=== PATIENT | female | born 2000 | race Two or more races ===

== ENCOUNTER 2023-06-09 13:15 | Inpatient (IN) | payer BC, OTHER ==
[~2023-06-09] VITALS: Ht 170.2 cm; Wt 61.9 kg
[2023-06-09 14:48] VITALS: PULSE 61; RESP 26; O2SAT 93
[2023-06-09 15:00] LABS: Basophils # (auto) 0.1 10 ^3/uL (0-0.2); Basophils % (auto) 0.4 % (0.0-2.0); Eosinophils # (auto) 0 10 ^3/uL (0-0.8); Eosinophils % (auto) 0.1 % (0.0-7.0); Hematocrit 43.4 % (36.0-46.0); Hemoglobin 14.6 g/dL (12.2-16.2); Lymphocytes # (auto) 1.4 10 ^3/uL (0.4-5.4); Mean Corpuscular Hemoglobin 29.3 pg (28.0-32.0); Mean Corpuscular Hgb Conc. 33.7 g/dL (32.0-36.0); Mean Corpuscular Volume 87.1 fL (80.0-100.0); Monocytes # (auto) 0.6 10 ^3/uL (0-1.3); Monocytes % (auto) 4.6 % (0.0-12.0); Neutrophils # (auto) 10.4 10 ^3/uL (1.6-8.6); Neutrophils % (auto) 83.9 % (37.0-80.0); Nucleated Red Blood Cells % 0.1 %; Red Blood Cells 4.98 10^6/uL (4.0-5.20); Red Cell Distribution Width 13.6 % (11.8-14.3); White Blood Cell 12.4 10^3/uL (4.4-10.8)
[2023-06-09 15:07] LABS: Chloride 102 mmol/L (98-107); Potassium 3.9 mmol/L (3.5-5.1); Sodium 134 mmol/L (136-145)
[2023-06-09 15:08] LABS: Anion Gap 11 (5-15); Calcium 10.2 mg/dL (8.7-10.4); Carbon Dioxide 21 mmol/L (20-30)
[2023-06-09 15:13] LABS: BUN/Creatinine Ratio 11.7 (10.0-20.0); Blood Urea Nitrogen 9 mg/dL (9-23); Glucose 82 mg/dL (74-106)
[2023-06-09 15:30] LABS: Urine Bacteria NONE SEEN /hpf (None Seen); Urine Blood Negative /uL (Negative); Urine Clarity Clear (Clear); Urine Color Yellow (Yellow); Urine Hyaline Cast FEW /lpf (0 - 2); Urine Mucus FEW (None Seen); Urine Protein, UAD TRACE (Negative); Urine Specific Gravity 1.026 (1.001-1.035); Urine Urobilinogen Normal (Negative); Urine WBC 1 /hpf (0 - 5); Urine pH 5.5 (5.0-8.0)
[2023-06-09] MEDS ORDERED: SODIUM CHLORIDE 0.9% 1,000 ML IV ONE (18:00)
[2023-06-09 19:45] VITALS: PULSE 90; RESP 18; O2SAT 100
[2023-06-09] MEDS ORDERED: ONDANSETRON HCL 4 MG/2 ML VIAL IV ONE (20:00)
[2023-06-09 20:51] LABS: Albumin 4.9 g/dL (3.2-4.8); Alkaline Phosphatase 51 U/L (46-116); Anion Gap 12 (5-15); Aspartate Aminotransferase 9 U/L (13-40); BUN/Creatinine Ratio 13.4 (10.0-20.0); Bilirubin, Total 1.1 mg/dL (0.2-1.0); Blood Urea Nitrogen 9 mg/dL (9-23); Calcium 9.4 mg/dL (8.7-10.4); Carbon Dioxide 19 mmol/L (20-30); Chloride 104 mmol/L (98-107); Glucose 74 mg/dL (74-106); Lipase 35 U/L (12-53); Potassium 3.9 mmol/L (3.5-5.1); Sodium 135 mmol/L (136-145); Total Protein 7.9 g/dL (5.7-8.2)
[2023-06-09 20:55] LABS: Alanine Aminotransferase < 9 U/L (7-40)
[2023-06-09] MEDS ORDERED: DOCUSATE SOD 100 MG CAP PO PRN (21:00)
[2023-06-09] MEDS ORDERED: DEXTROSE (50%) 50ML SYRG IV PRN (21:00)
[2023-06-09 21:06] LABS: Bilirubin, Direct 0.4 mg/dL (<0.3)
[2023-06-09] MEDS: cefTRIAXone 1GM/50ML D5W 50 ML IV SCH ×2 (21:59→22:00)
[2023-06-09] MEDS: metroNIDAZOLE 500MG/100ML 100 ML IV SCH (22:00)
[2023-06-09 22:16] LABS: Erythrocyte Sedimentation Rate 8 mm/hr (0-20)
[2023-06-09] MEDS: SODIUM CHLOR 0.9% PF (SALINE LOCK) 10ML VIAL/SYR IV SCH (22:18)
[2023-06-10] MEDS ORDERED: D5W/LACTATED RINGERS 1,000 ML IV ONE (00:45)
[2023-06-10] MEDS: ONDANSETRON HCL 4 MG/2 ML VIAL IV PRN ×5 (00:56→20:19)
[2023-06-10] MEDS ORDERED: CEPH500C PO (02:53)
[2023-06-10] MEDS ORDERED: DOXY1TAB PO (02:53)
[2023-06-10 05:00] VITALS: BP 116/67; PULSE 81; RESP 17; TEMP 98.2; O2SAT 98
[2023-06-10] MEDS: metroNIDAZOLE 500MG/100ML 100 ML IV SCH ×3 (05:40→22:00)
[2023-06-10] MEDS: ACCU-CHEK COMFORT CURVE STRIP VI SCH ×5 (06:00→23:45)
[2023-06-10] MEDS: InsuLIN REG 1unit/0.01ml Soln (100units/ml) SC SCH ×5 (06:00→23:46)
[2023-06-10] MEDS: SODIUM CHLOR 0.9% PF (SALINE LOCK) 10ML VIAL/SYR IV SCH ×3 (06:03→21:15)
[2023-06-10 09:00] VITALS: BP 106/50; PULSE 56; RESP 96; TEMP 98.1; O2SAT 96
[2023-06-10] MEDS: ACETAMINOPHEN 325 MG TAB PO PRN (12:30)
[2023-06-10 13:00] VITALS: BP 106/70; PULSE 74; RESP 20; TEMP 98.1; O2SAT 98
[2023-06-10 17:00] VITALS: BP 118/64; PULSE 64; RESP 20; TEMP 98; O2SAT 100
[2023-06-10 20:00] VITALS: RESP 16
[2023-06-10] MEDS: cefTRIAXone 1GM/50ML D5W 50 ML IV SCH (21:14)
[2023-06-10 22:00] VITALS: BP 122/56; PULSE 62; RESP 18; TEMP 98.3; O2SAT 100
[2023-06-11] MEDS: ONDANSETRON HCL 4 MG/2 ML VIAL IV PRN ×6 (01:18→22:33)
[2023-06-11 05:00] VITALS: BP 112/53; PULSE 59; RESP 16; TEMP 98.2; O2SAT 99
[2023-06-11] MEDS: ACCU-CHEK COMFORT CURVE STRIP VI SCH ×4 (05:41→23:57)
[2023-06-11] MEDS: SODIUM CHLOR 0.9% PF (SALINE LOCK) 10ML VIAL/SYR IV SCH ×3 (05:41→21:30)
[2023-06-11] MEDS: metroNIDAZOLE 500MG/100ML 100 ML IV SCH ×3 (05:41→22:33)
[2023-06-11] MEDS: InsuLIN REG 1unit/0.01ml Soln (100units/ml) SC SCH ×4 (05:49→23:57)
[2023-06-11 09:00] VITALS: BP 134/63; PULSE 85; RESP 21; TEMP 98; O2SAT 100
[2023-06-11 13:00] VITALS: BP 111/69; PULSE 73; RESP 20; TEMP 98; O2SAT 98
[2023-06-11 17:06] VITALS: BP 144/65; PULSE 86; RESP 21; TEMP 97.9; O2SAT 95
[2023-06-11] MEDS: ACETAMINOPHEN 325 MG TAB PO PRN (18:46)
[2023-06-11 20:00] VITALS: PULSE 80; RESP 18
[2023-06-11] MEDS: cefTRIAXone 1GM/50ML D5W 50 ML IV SCH (21:26)
[2023-06-11 22:00] VITALS: BP 121/94; PULSE 80; RESP 16; TEMP 98.1; O2SAT 100
[2023-06-12] VITALS (7 sets, daily range): BP systolic 103–125; BP diastolic 60–80; PULSE 80–99; RESP 15–18; TEMP 98–98.5; O2SAT 98–100
[2023-06-12] MEDS: ONDANSETRON HCL 4 MG/2 ML VIAL IV PRN ×5 (02:41→20:34)
[2023-06-12] MEDS ORDERED: ACETAMINOPHEN 650 mg PER 20.3 mL UD GT PRN (02:45)
[2023-06-12 05:56] LABS: Basophils # (auto) 0 10 ^3/uL (0-0.2); Basophils % (auto) 0.2 % (0.0-2.0); Eosinophils # (auto) 0 10 ^3/uL (0-0.8); Hematocrit 37.5 % (36.0-46.0); Hemoglobin 13.2 g/dL (12.2-16.2); Lymphocytes # (auto) 0.6 10 ^3/uL (0.4-5.4); Lymphocytes % (auto) 5.6 % (10.0-50.0); Mean Corpuscular Hemoglobin 30.1 pg (28.0-32.0); Mean Corpuscular Hgb Conc. 35.2 g/dL (32.0-36.0); Mean Corpuscular Volume 85.4 fL (80.0-100.0); Monocytes # (auto) 0.8 10 ^3/uL (0-1.3); Neutrophils # (auto) 8.7 10 ^3/uL (1.6-8.6); Neutrophils % (auto) 86.2 % (37.0-80.0); Red Blood Cells 4.39 10^6/uL (4.0-5.20); White Blood Cell 10.1 10^3/uL (4.4-10.8)
[2023-06-12 05:57] LABS: Chloride 105 mmol/L (98-107); Potassium 4.2 mmol/L (3.5-5.1); Sodium 136 mmol/L (136-145)
[2023-06-12 05:58] LABS: Anion Gap 11 (5-15); Calcium 9.6 mg/dL (8.5-10.1); Carbon Dioxide 20 mmol/L (20-30)
[2023-06-12] MEDS: InsuLIN REG 1unit/0.01ml Soln (100units/ml) SC SCH ×4 (06:00→23:54)
[2023-06-12 06:03] LABS: BUN/Creatinine Ratio 11.8 (10.0-20.0); Blood Urea Nitrogen 9 mg/dL (9-23); Glucose 87 mg/dL (74-106)
[2023-06-12] MEDS: metroNIDAZOLE 500MG/100ML 100 ML IV SCH ×3 (06:03→22:41)
[2023-06-12] MEDS: ACCU-CHEK COMFORT CURVE STRIP VI SCH ×4 (06:07→23:56)
[2023-06-12] MEDS: SODIUM CHLOR 0.9% PF (SALINE LOCK) 10ML VIAL/SYR IV SCH ×3 (06:08→21:53)
[2023-06-12] MEDS ORDERED: SODIUM CHLORIDE 0.9% 1,000 ML IV SCH (10:00)
[2023-06-12] MEDS ORDERED: ACETAMINOPHEN IV 1000 MG/100ML (10MG/ML) IV PRN (12:00)
[2023-06-12] MEDS: ACETAMINOPHEN IV 1000 MG/100ML (10MG/ML) IV PRN ×2 (12:40→20:34)
[2023-06-12] MEDS: cefTRIAXone 1GM/50ML D5W 50 ML IV SCH (21:13)
[2023-06-12] MEDS: D5W/SOD CHLO 0.9% 1,000 ML IV SCH (23:54)
[2023-06-13] MEDS: ONDANSETRON HCL 4 MG/2 ML VIAL IV PRN ×4 (00:30→23:23)
[2023-06-13 05:00] VITALS: BP 112/69; PULSE 70; RESP 18; TEMP 98.3; O2SAT 94
[2023-06-13] MEDS: ACETAMINOPHEN IV 1000 MG/100ML (10MG/ML) IV PRN ×2 (05:14→13:34)
[2023-06-13] MEDS: metroNIDAZOLE 500MG/100ML 100 ML IV SCH ×3 (05:59→21:50)
[2023-06-13] MEDS: InsuLIN REG 1unit/0.01ml Soln (100units/ml) SC SCH ×3 (06:00→18:00)
[2023-06-13] MEDS: ACCU-CHEK COMFORT CURVE STRIP VI SCH ×3 (06:02→18:00)
[2023-06-13] MEDS: SODIUM CHLOR 0.9% PF (SALINE LOCK) 10ML VIAL/SYR IV SCH ×3 (06:02→21:58)
[2023-06-13 06:16] LABS: Basophils # (auto) 0 10 ^3/uL (0-0.2); Basophils % (auto) 0.5 % (0.0-2.0); Eosinophils # (auto) 0 10 ^3/uL (0-0.8); Eosinophils % (auto) 0.1 % (0.0-7.0); Hematocrit 34.4 % (36.0-46.0); Hemoglobin 11.9 g/dL (12.2-16.2); Lymphocytes % (auto) 12.9 % (10.0-50.0); Mean Corpuscular Hemoglobin 29.6 pg (28.0-32.0); Mean Corpuscular Hgb Conc. 34.7 g/dL (32.0-36.0); Mean Corpuscular Volume 85.4 fL (80.0-100.0); Monocytes # (auto) 1.2 10 ^3/uL (0-1.3); Monocytes % (auto) 15.9 % (0.0-12.0); Neutrophils # (auto) 5.3 10 ^3/uL (1.6-8.6); Neutrophils % (auto) 70.6 % (37.0-80.0); Red Blood Cells 4.03 10^6/uL (4.0-5.20); Red Cell Distribution Width 13.3 % (11.8-14.3); White Blood Cell 7.5 10^3/uL (4.4-10.8)
[2023-06-13 06:20] LABS: Chloride 106 mmol/L (98-107); Potassium 4.4 mmol/L (3.5-5.1); Sodium 135 mmol/L (136-145)
[2023-06-13 06:21] LABS: Anion Gap 8 (5-15); Carbon Dioxide 21 mmol/L (20-30)
[2023-06-13 06:26] LABS: Glucose 95 mg/dL (74-106)
[2023-06-13 06:27] LABS: BUN/Creatinine Ratio 11.3 (10.0-20.0); Blood Urea Nitrogen 7 mg/dL (9-23)
[2023-06-13 08:30] VITALS: PULSE 70; RESP 18
[2023-06-13 08:33] VITALS: BP 103/57; PULSE 89; RESP 17; TEMP 97.8; O2SAT 98
[2023-06-13] MEDS: D5W/SOD CHLO 0.9% 1,000 ML IV SCH ×2 (09:20→21:58)
[2023-06-13] MEDS ORDERED: FAMOTIDINE (10MG/ML) 2ML VL IV ONE (10:15)
[2023-06-13 18:03] VITALS: BP 114/78; PULSE 71; RESP 16; TEMP 97.7; O2SAT 100
[2023-06-13 20:00] VITALS: RESP 18
[2023-06-13] MEDS: FAMOTIDINE (10MG/ML) 2ML VL IV SCH (21:50)
[2023-06-13 22:00] VITALS: BP 115/76; PULSE 85; RESP 16; TEMP 98.3; O2SAT 99
[2023-06-13] MEDS: cefTRIAXone 1GM/50ML D5W 50 ML IV SCH (23:24)
[2023-06-14] MEDS: ACCU-CHEK COMFORT CURVE STRIP VI SCH ×3 (00:29→12:56)
[2023-06-14 05:00] VITALS: BP 105/69; PULSE 72; RESP 16; TEMP 98.1; O2SAT 98
[2023-06-14 05:49] LABS: Basophils # (auto) 0 10 ^3/uL (0-0.2); Basophils % (auto) 0.3 % (0.0-2.0); Eosinophils # (auto) 0 10 ^3/uL (0-0.8); Eosinophils % (auto) 0.2 % (0.0-7.0); Hemoglobin 11.7 g/dL (12.2-16.2); Lymphocytes # (auto) 1.1 10 ^3/uL (0.4-5.4); Lymphocytes % (auto) 16.5 % (10.0-50.0); Mean Corpuscular Hemoglobin 29.9 pg (28.0-32.0); Mean Corpuscular Hgb Conc. 34.4 g/dL (32.0-36.0); Mean Corpuscular Volume 87.1 fL (80.0-100.0); Monocytes # (auto) 1.1 10 ^3/uL (0-1.3); Monocytes % (auto) 17.8 % (0.0-12.0); Neutrophils # (auto) 4.2 10 ^3/uL (1.6-8.6); Neutrophils % (auto) 65.2 % (37.0-80.0); Nucleated Red Blood Cells % 0.1 %; Red Cell Distribution Width 13.4 % (11.8-14.3); White Blood Cell 6.4 10^3/uL (4.4-10.8)
[2023-06-14 05:59] LABS: Calcium 8.7 mg/dL (8.7-10.4); Chloride 106 mmol/L (98-107); Potassium 3.3 mmol/L (3.5-5.1); Sodium 135 mmol/L (136-145)
[2023-06-14 06:00] LABS: Anion Gap 10 (5-15); Carbon Dioxide 19 mmol/L (20-30)
[2023-06-14] MEDS: InsuLIN REG 1unit/0.01ml Soln (100units/ml) SC SCH ×3 (06:00→12:00)
[2023-06-14 06:05] LABS: Glucose 90 mg/dL (74-106)
[2023-06-14] MEDS: SODIUM CHLOR 0.9% PF (SALINE LOCK) 10ML VIAL/SYR IV SCH ×2 (06:12→13:37)
[2023-06-14] MEDS: metroNIDAZOLE 500MG/100ML 100 ML IV SCH ×2 (06:16→13:37)
[2023-06-14 06:33] LABS: BUN/Creatinine Ratio 8.6 (10.0-20.0); Blood Urea Nitrogen < 5 mg/dL (9-23)
[2023-06-14] MEDS: FAMOTIDINE (10MG/ML) 2ML VL IV SCH (08:51)
[2023-06-14 09:00] VITALS: BP 108/71; PULSE 78; RESP 16; TEMP 97.9; O2SAT 99
[2023-06-14] MEDS ORDERED: POTASSIUM EFFERVESENT TAB 25 MEQ GT ONE (11:30)
[2023-06-14 12:58] VITALS: BP 103/64; PULSE 92; RESP 16; TEMP 98; O2SAT 99
[2023-06-14] MEDS: D5W/SOD CHLO 0.9% 1,000 ML IV SCH (12:58)
[2023-06-14] MEDS ORDERED: POTASSIUM EFFERVESENT TAB 25 MEQ PO ONE (13:00)
[2023-06-14] MEDS ORDERED: METR-344 PO (15:48)
[2023-06-14 17:00] VITALS: BP 114/68; PULSE 80; RESP 16; TEMP 98.2; O2SAT 97
== END 2023-06-14 17:49 | disposition home or self-care (01) | DRG 832 ==
LOC: ER 13:15 → OVERFLOW 20:58 → CENTRAL 06-10 02:12
PROVIDERS: ADMIT Internal Medicine Pulmonary Disease; ATTEND Internal Medicine Pulmonary Disease
DX: O21.0 Mild hyperemesis gravidarum (principal); O26.831 Pregnancy related renal disease, first trimester; O99.111 Other diseases of the blood and blood-forming organs and certain disorders involving the immune mechanism complicating pregnancy, first trimester; E87.6 Hypokalemia; K37 Unspecified appendicitis; Z3A.01 Less than 8 weeks gestation of pregnancy; O99.611 Diseases of the digestive system complicating pregnancy, first trimester; Z87.891 Personal history of nicotine dependence
CPT/HCPCS: 36415; 72195; 74181; 76705; 76801; 76817; 80048; 80053; 81001; 81025; 82248; 82962; 83690; 84702; 85025; 85652; 86141; 86900; 86901; 87040; G0378; J0131; J1815; J2405; J3490; J7042

== ENCOUNTER 2023-12-11 12:55 | Observation (INO) | payer MEDICAID ==
[~2023-12-11 12:55] MED LIST: CEPH500C PO; DOXY1TAB PO; METR-344 PO
[2023-12-11] MEDS ORDERED: PREN-96 PO (14:27)
== END 2023-12-11 15:07 | disposition home or self-care (01) ==
LOC: LDRP 12:55
PROVIDERS: ADMIT Obstetrics & Gynecology; ATTEND Obstetrics & Gynecology
DX: O24.419 Gestational diabetes mellitus in pregnancy, unspecified control (principal); Z3A.32 32 weeks gestation of pregnancy
CPT/HCPCS: 59025; 76818; 81002; 82962; 94760; G0378

== ENCOUNTER 2023-12-18 12:50 | Observation (INO) | payer MEDICAID ==
[~2023-12-18 12:50] MED LIST changes: -CEPH500C PO; -DOXY1TAB PO; -METR-344 PO; +PREN-96 PO
== END 2023-12-18 16:01 | disposition home or self-care (01) ==
LOC: UNDOADMOB 12:50 → LDRP 12:50 → UNDODISOB 16:01
PROVIDERS: ADMIT Obstetrics & Gynecology; ATTEND Obstetrics & Gynecology
DX: O24.419 Gestational diabetes mellitus in pregnancy, unspecified control (principal); O26.833 Pregnancy related renal disease, third trimester; N20.0 Calculus of kidney; Z3A.33 33 weeks gestation of pregnancy
CPT/HCPCS: 59025; 76818; 81002; 82948; 82962; G0378

== ENCOUNTER 2023-12-21 10:38 | Observation (INO) | payer MEDICAID ==
[2023-12-21] MEDS ORDERED: METF-370 PO (12:03)
== END 2023-12-21 12:13 | disposition home or self-care (01) ==
LOC: UNDOADMOB 10:38 → LDRP 10:38 → UNDODISOB 12:13
PROVIDERS: ADMIT Obstetrics & Gynecology; ATTEND Obstetrics & Gynecology
DX: O24.415 Gestational diabetes mellitus in pregnancy, controlled by oral hypoglycemic drugs (principal); Z3A.33 33 weeks gestation of pregnancy; Z79.84 Long term (current) use of oral hypoglycemic drugs
CPT/HCPCS: 59025; 76818; 81002; 82948; 82962; G0378

== ENCOUNTER 2023-12-28 07:40 | Observation (INO) | payer MEDICAID ==
[~2023-12-28 07:40] MED LIST changes: +METF-370 PO
== END 2023-12-28 09:05 | disposition home or self-care (01) ==
LOC: UNDOADMOB 07:40 → LDRP 07:40 → UNDODISOB 09:05
PROVIDERS: ADMIT Obstetrics & Gynecology; ATTEND Obstetrics & Gynecology
DX: O24.419 Gestational diabetes mellitus in pregnancy, unspecified control (principal); Z3A.34 34 weeks gestation of pregnancy
CPT/HCPCS: 59025; 76818; 81002; 82948; 82962; 94760; G0378

== ENCOUNTER 2024-01-01 12:10 | Observation (INO) | payer MEDICAID | END 2024-01-01 14:05 | disposition home or self-care (01) | LOC: UNDOADMOB 12:10 → LDRP 12:10 | PROVIDERS: ADMIT Obstetrics & Gynecology; ATTEND Obstetrics & Gynecology | DX: O24.419 Gestational diabetes mellitus in pregnancy, unspecified control (principal); Z3A.35 35 weeks gestation of pregnancy | CPT/HCPCS: 59025; 76818; 81002; 82948; 82962; 94760; G0378 ==

== ENCOUNTER → 2024-01-01 | Outpatient (CLI) | payer MEDICAID ==
[2024-01-01 14:23] LABS: Lymphocytes # (auto) 1.3 10 ^3/uL (0.4-5.4); Lymphocytes % (auto) 12.5 % (10.0-50.0); Neutrophils % (auto) 75.2 % (37.0-80.0); Nucleated Red Blood Cells % 0.1 %
[2024-01-01 14:24] LABS: Basophils # (auto) 0.1 10 ^3/uL (0-0.2); Basophils % (auto) 0.7 % (0.0-2.0); Eosinophils # (auto) 0.1 10 ^3/uL (0-0.8); Eosinophils % (auto) 0.6 % (0.0-7.0); Hematocrit 30.7 % (36.0-46.0); Hemoglobin 10.4 g/dL (12.2-16.2); Mean Corpuscular Hemoglobin 26.3 pg (28.0-32.0); Mean Corpuscular Volume 77.4 fL (80.0-100.0); Monocytes # (auto) 1.1 10 ^3/uL (0-1.3); Neutrophils # (auto) 7.8 10 ^3/uL (1.6-8.6); Red Blood Cells 3.97 10^6/uL (4.0-5.20); Red Cell Distribution Width 15.5 % (11.8-14.3); White Blood Cell 10.4 10^3/uL (4.4-10.8)
[2024-01-02 07:07] LABS: RPR Non Reactive (Non Reactive)
[2024-01-02 20:06] LABS: Chlamydia Trachomatis, NAA Negative (Negative); Neisseria gonorrhoeae, NAA Negative (Negative)
== END | disposition home or self-care (01) ==
LOC: LAB 14:08
PROVIDERS: ATTEND Obstetrics & Gynecology
DX: Z11.3 Encounter for screening for infections with a predominantly sexual mode of transmission (principal); Z34.00 Encounter for supervision of normal first pregnancy, unspecified trimester; Z72.51 High risk heterosexual behavior
CPT/HCPCS: 36415; 83036; 85025; 86592

== ENCOUNTER 2024-01-04 08:48 | Observation (INO) | payer MEDICAID | END 2024-01-04 10:27 | disposition home or self-care (01) | LOC: UNDOADMOB 08:48 → LDRP 08:48 → UNDODISOB 10:27 | PROVIDERS: ADMIT Obstetrics & Gynecology; ATTEND Obstetrics & Gynecology | DX: O24.419 Gestational diabetes mellitus in pregnancy, unspecified control (principal); Z3A.35 35 weeks gestation of pregnancy | CPT/HCPCS: 59025; 76818; 81002; 82948; 82962; 94760; G0378 ==

== ENCOUNTER 2024-01-08 10:55 | Observation (INO) | payer MEDICAID | END 2024-01-08 13:30 | disposition home or self-care (01) | LOC: LDRP 10:55 → UNDOADMOB 10:55 → LDRP 11:58 → UNDODISOB 13:30 | PROVIDERS: ADMIT Obstetrics & Gynecology; ATTEND Obstetrics & Gynecology | DX: O24.419 Gestational diabetes mellitus in pregnancy, unspecified control (principal); Z3A.36 36 weeks gestation of pregnancy; Z79.84 Long term (current) use of oral hypoglycemic drugs | CPT/HCPCS: 59025; 76818; 81002; 82948; 82962; 94760; G0378 ==

== ENCOUNTER 2024-01-11 07:47 | Observation (INO) | payer MEDICAID | END 2024-01-11 09:11 | disposition home or self-care (01) | LOC: LDRP 07:47 | PROVIDERS: ADMIT Obstetrics & Gynecology; ATTEND Obstetrics & Gynecology | DX: O24.419 Gestational diabetes mellitus in pregnancy, unspecified control (principal); Z3A.36 36 weeks gestation of pregnancy | CPT/HCPCS: 59025; 76818; 81002; 82948; 82962; G0378 ==

== ENCOUNTER 2024-01-15 09:00 | Observation (INO) | payer MEDICAID | END 2024-01-15 10:25 | disposition home or self-care (01) | LOC: LDRP 09:00 | PROVIDERS: ADMIT Obstetrics & Gynecology; ATTEND Obstetrics & Gynecology | DX: O24.419 Gestational diabetes mellitus in pregnancy, unspecified control (principal); Z3A.37 37 weeks gestation of pregnancy | CPT/HCPCS: 59025; 76818; 81002; 82948; 82962; 94760; G0378 ==

== ENCOUNTER 2024-01-18 08:45 | Observation (INO) | payer MEDICAID | END 2024-01-18 10:51 | disposition home or self-care (01) | LOC: UNDOADMOB 08:45 → LDRP 08:45 → UNDODISOB 10:51 | PROVIDERS: ADMIT Obstetrics & Gynecology; ATTEND Obstetrics & Gynecology | DX: O24.419 Gestational diabetes mellitus in pregnancy, unspecified control (principal); Z3A.37 37 weeks gestation of pregnancy | CPT/HCPCS: 59025; 76818; 81002; 82948; 82962; 94760; G0378 ==

== ENCOUNTER 2024-01-22 13:37 | Observation (INO) | payer MEDICAID | END 2024-01-22 15:24 | disposition home or self-care (01) | LOC: LDRP 13:37 | PROVIDERS: ADMIT Obstetrics & Gynecology; ATTEND Obstetrics & Gynecology | DX: O24.419 Gestational diabetes mellitus in pregnancy, unspecified control (principal); Z3A.38 38 weeks gestation of pregnancy | CPT/HCPCS: 59025; 76818; 81002; 82948; 82962; 94760; G0378 ==

== ENCOUNTER 2024-01-25 11:01 | Observation (INO) | payer MEDICAID | END 2024-01-25 12:36 | disposition home or self-care (01) | LOC: LDRP 11:01 | PROVIDERS: ADMIT Obstetrics & Gynecology; ATTEND Obstetrics & Gynecology | DX: O24.419 Gestational diabetes mellitus in pregnancy, unspecified control (principal); O62.9 Abnormality of forces of labor, unspecified; Z3A.38 38 weeks gestation of pregnancy | CPT/HCPCS: 59025; 76818; 81002; 82948; 82962; 94760; G0378 ==

== ENCOUNTER 2024-01-29 06:52 | Inpatient (IN) | payer MEDICAID ==
[~2024-01-29] VITALS: Ht 167.6 cm; Wt 98.4 kg
[2024-01-29] MEDS ORDERED: LIDOCAINE 2%HCL (LOCAL ANESTH.) INJ 20ML MDV IJ PRN (07:00)
[2024-01-29 07:46] LABS: Urine Bacteria None Seen /hpf (None Seen)
[2024-01-29 07:50] LABS: Hemoglobin 10.2 g/dL (12.2-16.2); Red Cell Distribution Width 16.8 % (11.8-14.3)
[2024-01-29 07:54] LABS: Hematocrit 31.7 % (36.0-46.0); Mean Corpuscular Hemoglobin 24.3 pg (28.0-32.0); Mean Corpuscular Hgb Conc. 32.3 g/dL (32.0-36.0); Mean Corpuscular Volume 75.3 fL (80.0-100.0); Platelet Count (auto) 240 10^3/uL (140-450); Red Blood Cells 4.21 10^6/uL (4.0-5.20)
[2024-01-29 07:58] LABS: Basophils % (manual) 0 (0.0-2.0); Blast Cells 0; Myelocytes % 0; Promyelocytes % 0; Reactive Lymphocytes 0
[2024-01-29 08:00] LABS: Alanine Aminotransferase 16 U/L (7-40); Albumin 3.9 g/dL (3.2-4.8); Alkaline Phosphatase 178 U/L (46-116); Anion Gap 8 (5-15); Aspartate Aminotransferase 22 U/L (13-40); BUN/Creatinine Ratio 15.4 (10.0-20.0); Blood Urea Nitrogen 10 mg/dL (9-23); Calcium 9.9 mg/dL (8.7-10.4); Carbon Dioxide 20 mmol/L (20-30); Chloride 106 mmol/L (98-107); Glucose 106 mg/dL (74-106); Potassium 4.1 mmol/L (3.5-5.1); Sodium 134 mmol/L (136-145)
[2024-01-29 08:01] LABS: Bilirubin, Total < 0.2 mg/dL (0.2-1.0); Total Protein 6.6 g/dL (5.7-8.2)
[2024-01-29] MEDS: LACTATED RINGER'S 1,000 ML IV SCH (08:02)
[2024-01-29 08:07] LABS: Urine Blood Negative /uL (Negative); Urine Clarity Clear (Clear); Urine Color Light-Yellow (Yellow); Urine Protein, UAD Negative (Negative); Urine Specific Gravity 1.012 (1.001-1.035); Urine Urobilinogen Normal (Negative); Urine WBC 1 /hpf (0 - 5); Urine pH 6.5 (5.0-9.0)
[2024-01-29 08:11] LABS: Amphetamine Screen, Urine Neg (NEGATIVE)
[2024-01-29 08:12] LABS: Barbiturate Scree,Urine Neg (NEGATIVE); Benzodiazephine Screen, Urine Neg (NEGATIVE); Cannabinoid Screen, Urine Neg (NEGATIVE); Cocaine Screen, Urine Neg (NEGATIVE); Opiate Scree,Urine Neg (NEGATIVE); Phencyclidine Screen, Urine Neg (NEGATIVE)
[2024-01-29 08:35] LABS: INR 0.92 (0.9-1.15); Partial Thromboplastin Time 23.1 SEC (24.5-34.5); Prothrombin Time 9.8 sec (9.3-11.8)
[2024-01-29] MEDS: miSOPROStol 50 MCG per PRE-CUT 1/2 TAB PO PRN (08:47)
[2024-01-29] MEDS: WITCH HAZEL-GLYCERIN PAD TOP PRN (08:47)
[2024-01-29] MEDS: DERMOPLAST 60ML BOTTLE TOP PRN (08:47)
[2024-01-29] MEDS: PHISODERM TOP SOLN 240ML BTL TOP PRN (08:47)
[2024-01-29] MEDS ORDERED: ACCU-CHEK COMFORT CURVE STRIP VI SCH (10:00)
[2024-01-29 11:23] LABS: Band Neutrophils % (manual) 4; Eosinophils % (manual) 2 (0-7); Hypochromia Slight; Lymphocytes % (manual) 12 (10.0-50.0); Metamyelocytes % 2; Monocytes % (manual) 6 (0-12); Platelet Estimate Adequate
[2024-01-29] MEDS: ePHEDrine SULFATE 50 MG/ML AMP IV ONE (13:30)
[2024-01-29] MEDS: LIDOCAINE HCL 2 %PF INJ 10ML AMP IJ ONE (13:30)
[2024-01-29] MEDS: NALOXONE HCL 0.4 MG/ML VIAL IV ONE (13:30)
[2024-01-29] MEDS: LACTATED RINGER'S 1,000 ML IV ONE (13:36)
[2024-01-29] MEDS: FAMOTIDINE (10MG/ML) 2ML VL IV ONE (14:15)
[2024-01-29] MEDS: fentaNYL CITRATE 100 MCG/2 ML VL IV ONE (14:34)
[2024-01-29] MEDS: ROPIVACAINE HCL 200 ML ONE (14:35)
[2024-01-29 19:34] LABS: Vaginal Bacteria Few; Vaginal Clue Cells None Seen; Vaginal Epithelial Cells Few; Vaginal Trichomonas Not Present
[2024-01-30] MEDS: diphenhdrAMINE HCL 50 MG/1 ML VL IV PRN (03:06)
[2024-01-30] MEDS: ROPIVACAINE HCL 200 ML ONE (05:45)
[2024-01-30 07:06] LABS: RPR Non Reactive (Non Reactive)
[2024-01-30] MEDS ORDERED: D5W/LACTATED RINGERS 1,000 ML IV SCH (09:15)
[2024-01-30] MEDS ORDERED: TERBUTALINE SULFATE 1 MG/ML 1ML VIAL SC ONE (09:55)
[2024-01-30] MEDS: IBUPROFEN 600 MG TAB PO PRN (17:23)
[2024-01-30] MEDS: ACETAMINOPHEN 325 MG TAB PO PRN (17:23)
[2024-01-30] MEDS: LACT. RINGERS/OXYTOCIN 20UNITS 500 ML IV ONE ×2 (17:59)
[2024-01-30 19:00] VITALS: BP 141/73; PULSE 88; RESP 18; TEMP 97.9; O2SAT 96
[2024-01-30] MEDS: DOCUSATE SOD 100 MG CAP PO SCH (21:53)
[2024-01-30 23:00] VITALS: BP 134/75; PULSE 96; RESP 18; TEMP 98.2; O2SAT 96
[2024-01-31 02:48] VITALS: BP 134/68; PULSE 88; RESP 18; TEMP 97.8; O2SAT 98
[2024-01-31] MEDS ORDERED: IBU600T PO (05:21)
[2024-01-31 07:00] VITALS: BP 142/77; PULSE 75; RESP 18; TEMP 98.4; O2SAT 96
[2024-01-31 11:00] VITALS: BP 130/70; PULSE 83; RESP 18; TEMP 97.9; O2SAT 95
[2024-01-31 15:00] VITALS: BP 141/75; PULSE 85; RESP 18; TEMP 97.9; O2SAT 96
[2024-01-31 19:02] VITALS: BP 134/76; PULSE 86; RESP 16; TEMP 97.8; O2SAT 98
[2024-01-31 23:23] VITALS: BP 139/79; PULSE 78; RESP 17; TEMP 97.9; O2SAT 98
[2024-02-01] VITALS (18 sets, daily range): BP systolic 133–157; BP diastolic 70–97; PULSE 76–94; RESP 16–18; TEMP 97.9–98.7; O2SAT 96–99
[2024-02-01 09:39] LABS: Basophils # (auto) 0 10 ^3/uL (0-0.2); Basophils % (auto) 0.4 % (0.0-2.0); Lymphocytes # (auto) 1.5 10 ^3/uL (0.4-5.4); Mean Corpuscular Hemoglobin 24.9 pg (28.0-32.0); Monocytes # (auto) 1.1 10 ^3/uL (0-1.3); Neutrophils # (auto) 8.2 10 ^3/uL (1.6-8.6); White Blood Cell 11.2 10^3/uL (4.4-10.8)
[2024-02-01 09:41] LABS: Eosinophils # (auto) 0.3 10 ^3/uL (0-0.8); Eosinophils % (auto) 2.3 % (0.0-7.0); Hematocrit 28.8 % (36.0-46.0); Hemoglobin 9.6 g/dL (12.2-16.2); Lymphocytes % (auto) 13.6 % (10.0-50.0); Mean Corpuscular Hgb Conc. 33.4 g/dL (32.0-36.0); Mean Corpuscular Volume 74.7 fL (80.0-100.0); Monocytes % (auto) 10.1 % (0.0-12.0); Neutrophils % (auto) 73.6 % (37.0-80.0); Platelet Count (auto) 226 10^3/uL (140-450); Red Blood Cells 3.85 10^6/uL (4.0-5.20); Red Cell Distribution Width 16.9 % (11.8-14.3)
[2024-02-01 10:04] LABS: Alanine Aminotransferase 14 U/L (7-40); Albumin 3.7 g/dL (3.2-4.8); Alkaline Phosphatase 140 U/L (46-116); Anion Gap 8 (5-15); Aspartate Aminotransferase 20 U/L (13-40); BUN/Creatinine Ratio 15.1 (10.0-20.0); Bilirubin, Total < 0.2 mg/dL (0.2-1.0); Blood Urea Nitrogen 11 mg/dL (9-23); Carbon Dioxide 23 mmol/L (20-30); Chloride 106 mmol/L (98-107); Glucose 89 mg/dL (74-106); Potassium 4.1 mmol/L (3.5-5.1); Sodium 137 mmol/L (136-145); Total Protein 6.2 g/dL (5.7-8.2)
[2024-02-01 11:21] LABS: Uric Acid 5.9 mg/dL (3.1-7.8)
[2024-02-01 11:56] LABS: Protein, Urine 19.8 mg/dL (0.0-11.9)
[2024-02-01 11:58] LABS: Creatinine, Urine 96.3 mg/dL (30.0-125.0); Urine Protein/Creatinine Ratio 0.21
[2024-02-02] VITALS (7 sets, daily range): BP systolic 134–151; BP diastolic 74–85; PULSE 69–95; RESP 16–18; TEMP 97.6–98.5; O2SAT 96–99
[2024-02-02] MEDS: LABETALOL HCL 200 MG TAB PO SCH (08:17)
[2024-02-02] MEDS ORDERED: LABETALOL HCL 200 MG TAB PO SCH (10:00)
== END 2024-02-02 21:51 | disposition home or self-care (01) | DRG 560 ==
LOC: LDRP 06:52 → OBSVTOIN 07:05 → LDRP 01-31 02:39
PROVIDERS: ADMIT Obstetrics & Gynecology; ATTEND Obstetrics & Gynecology
PROC: 3E0R3BZ Introduction of Anesthetic Agent into Spinal Canal, Percutaneous Approach (ICD-10-PCS; 2024-01-29)
PROC: 00HU33Z Insertion of Infusion Device into Spinal Canal, Percutaneous Approach (ICD-10-PCS; 2024-01-29)
PROC: 10E0XZZ Delivery of Products of Conception, External Approach (ICD-10-PCS; principal; 2024-01-30)
PROC: 3E0DXGC Introduction of Other Therapeutic Substance into Mouth and Pharynx, External Approach (ICD-10-PCS; 2024-01-30)
DX: O24.415 Gestational diabetes mellitus in pregnancy, controlled by oral hypoglycemic drugs (principal); Z37.0 Single live birth; O14.05 Mild to moderate pre-eclampsia, complicating the puerperium; O69.1XX0 Labor and delivery complicated by cord around neck, with compression, not applicable or unspecified; O76 Abnormality in fetal heart rate and rhythm complicating labor and delivery; Z3A.39 39 weeks gestation of pregnancy
CPT/HCPCS: 36415; 59025; 59200; 59409; 80053; 80307; 81001; 81002; 82570; 82948; 82962; 84156; 84550; 85007; 85025; 85027; 85610; 85730; 86592; 86803; 86850; 86900; 86901; 87210; 94760; 94762; 96360; 96361; 96365; 96366; G0378; J2590